=== PATIENT | female | born 1980 | race Hispanic/Latino ===

== ENCOUNTER 2016-05-14 09:00 | Outpatient (CLI) | payer OTHER ==
--- NOTE | 2016-05-15 10:18 | CT ---
CT CHEST WITHOUT CONTRAST: History: Cough, bronchitis. FINDINGS: Absence of IV contrast reduces the sensitivity of the exam, particularly for evaluation of solid org ans, mediastinal, hilar, and vascular structures. The aorta demonstrates normal caliber without evidence of aneurysmal dilatation. No pleural or wali cardial effusions are identified. There are mild infiltrates in the medial segment of the right mid dle lobe and the lingula. The tracheal bronchial tree is normal. No acute osseous abnormalities ar e seen. IMPRESSION: Mild infiltrates in the right middle lobe and lingula suspicious for pneumonia. POS: [facility]
== END 2016-05-14 09:01 | disposition home or self-care (01) ==
LOC: NAV CT 09:00
PROVIDERS: ATTEND Family Medicine
DX: J20.9 Acute bronchitis, unspecified (principal)
CPT/HCPCS: 71250